=== PATIENT | female | born 1980 | race Caucasian/White ===

== ENCOUNTER 2018-12-23 12:20 | Emergency (ER) | payer MEDICAID ==
[~2018-12-23] VITALS: Ht 165.1 cm; Wt 134.3 kg
[2018-12-23 12:28] VITALS: Ht 165.1 cm; Wt 134.3 kg
[2018-12-23 14:41] VITALS: BP 164/94
== END 2018-12-23 14:41 | disposition home or self-care (01) ==
LOC: ED 12:20
DX: J32.9 Chronic sinusitis, unspecified (principal); I10 Essential (primary) hypertension; J45.909 Unspecified asthma, uncomplicated; Z88.1 Allergy status to other antibiotic agents
CPT/HCPCS: J1885